=== PATIENT | female | born 1965 | race Caucasian/White ===

== ENCOUNTER 2016-09-09 11:59 | Emergency (ER) | payer SELFPAY ==
[2016-09-22] MEDS ORDERED: ASPIRIN EC81 MG PO (07:28)
[2016-09-22] MEDS ORDERED: FLEXERIL 10 MG10 MG PO (07:28)
[2016-09-22] MEDS ORDERED: ADVAIR 250-501 EACH INH (07:30)
[2016-09-22] MEDS ORDERED: ISORDIL TAB 3030 MG PO (07:31)
[2016-09-22] MEDS ORDERED: ZOCOR20 MG PO (07:31)
[2016-09-22] MEDS ORDERED: LEXAPRO20 MG PO (07:32)
[2016-09-22] MEDS ORDERED: WELLBUTRIN SR100 MG PO (07:32)
[2016-09-22] MEDS ORDERED: CATAPRES 0.1MG0.1 MG PO (07:32)
[2016-09-22] MEDS ORDERED: NEURONTIN 400400 MG PO (07:33)
[2016-09-22] MEDS ORDERED: PHENERGAN 12.12.5 M1 PO (12:37)
[2016-09-22] MEDS ORDERED: PERCOCET 5-3251 EACH PO (12:37)
[2016-09-22] MEDS ORDERED: DOSS (12:38)
[2016-09-22] MEDS ORDERED: DOSS PO (12:39)
[2016-12-26] MEDS ORDERED: PERCOCET 7.5-31 EACH PO (14:51)
== END 2016-09-09 17:11 | disposition home or self-care (01) ==
LOC: ER1 11:59
DX: S42.031A Displaced fracture of lateral end of right clavicle, initial encounter for closed fracture (principal); S30.1XXA Contusion of abdominal wall, initial encounter; M50.322 Other cervical disc degeneration at C5-C6 level; F17.200 Nicotine dependence, unspecified, uncomplicated; Z88.2 Allergy status to sulfonamides; Z88.5 Allergy status to narcotic agent; V89.9XXA Person injured in unspecified vehicle accident, initial encounter; Y92.410 Unspecified street and highway as the place of occurrence of the external cause
CPT/HCPCS: 70450; 71010; 72125; 73010; 73030; 73502; 96372; 99284; J1885

== ENCOUNTER 2016-09-11 15:55 | Emergency (ER) | payer OTHER ==
[2016-09-22] MEDS ORDERED: ASPIRIN EC81 MG PO (07:28)
[2016-09-22] MEDS ORDERED: FLEXERIL 10 MG10 MG PO (07:28)
[2016-09-22] MEDS ORDERED: ADVAIR 250-501 EACH INH (07:30)
[2016-09-22] MEDS ORDERED: ZOCOR20 MG PO (07:31)
[2016-09-22] MEDS ORDERED: ISORDIL TAB 3030 MG PO (07:31)
[2016-09-22] MEDS ORDERED: LEXAPRO20 MG PO (07:32)
[2016-09-22] MEDS ORDERED: CATAPRES 0.1MG0.1 MG PO (07:32)
[2016-09-22] MEDS ORDERED: WELLBUTRIN SR100 MG PO (07:32)
[2016-09-22] MEDS ORDERED: NEURONTIN 400400 MG PO (07:33)
[2016-09-22] MEDS ORDERED: PERCOCET 5-3251 EACH PO (12:37)
[2016-09-22] MEDS ORDERED: PHENERGAN 12.12.5 M1 PO (12:37)
[2016-09-22] MEDS ORDERED: DOSS (12:38)
[2016-09-22] MEDS ORDERED: DOSS PO (12:39)
[2016-12-26] MEDS ORDERED: PERCOCET 7.5-31 EACH PO (14:51)
== END 2016-09-11 18:20 | disposition left against medical advice (07) ==
LOC: ER1 15:55
DX: Z53.21 Procedure and treatment not carried out due to patient leaving prior to being seen by health care provider (principal)

== ENCOUNTER → 2016-09-20 | Outpatient (CLI) | payer OTHER ==
[~2016-09-20] MED LIST: ADVAIR 250-501 EACH INH; ASPIRIN EC81 MG PO; CATAPRES 0.1MG0.1 MG PO; DOSS; DOSS PO; FLEXERIL 10 MG10 MG PO; ISORDIL TAB 3030 MG PO; LEXAPRO20 MG PO; NEURONTIN 400400 MG PO; PERCOCET 5-3251 EACH PO; PERCOCET 7.5-31 EACH PO; PHENERGAN 12.12.5 M1 PO; WELLBUTRIN SR100 MG PO; ZOCOR20 MG PO
[2016-09-20 12:28] LABS: BUN/CREATININE RATIO 18 (0-10)
== END ==
LOC: OPSV2 11:00
PROVIDERS: Orthopaedic Surgery
DX: Z01.812 Encounter for preprocedural laboratory examination (principal); Z01.810 Encounter for preprocedural cardiovascular examination; Z01.818 Encounter for other preprocedural examination; S42.001A Fracture of unspecified part of right clavicle, initial encounter for closed fracture; Z88.5 Allergy status to narcotic agent; Z88.2 Allergy status to sulfonamides
CPT/HCPCS: 36415; 71020; 80048; 93005

== ENCOUNTER → 2016-09-22 | Day surgery (SDC) | payer OTHER ==
[~2016-09-22] VITALS: Ht 170.2 cm; Wt 77.1 kg
== END | disposition home or self-care (01) ==
LOC: OR 06:52
PROVIDERS: Orthopaedic Surgery
PROC: 0PS904Z Reposition Right Clavicle with Internal Fixation Device, Open Approach (ICD-10-PCS; principal; 2016-09-22 07:45)
DX: S42.001A Fracture of unspecified part of right clavicle, initial encounter for closed fracture (principal); V49.9XXA Car occupant (driver) (passenger) injured in unspecified traffic accident, initial encounter; I10 Essential (primary) hypertension; I25.119 Atherosclerotic heart disease of native coronary artery with unspecified angina pectoris; I25.2 Old myocardial infarction; J44.9 Chronic obstructive pulmonary disease, unspecified; J40 Bronchitis, not specified as acute or chronic; K21.9 Gastro-esophageal reflux disease without esophagitis; N19 Unspecified kidney failure; G89.29 Other chronic pain; M54.9 Dorsalgia, unspecified; M19.90 Unspecified osteoarthritis, unspecified site; F41.9 Anxiety disorder, unspecified; F17.210 Nicotine dependence, cigarettes, uncomplicated; Z87.01 Personal history of pneumonia (recurrent); Z85.41 Personal history of malignant neoplasm of cervix uteri; Z82.49 Family history of ischemic heart disease and other diseases of the circulatory system; Z83.3 Family history of diabetes mellitus; Z82.5 Family history of asthma and other chronic lower respiratory diseases; Z81.8 Family history of other mental and behavioral disorders; Z88.2 Allergy status to sulfonamides; Z88.5 Allergy status to narcotic agent; Z88.6 Allergy status to analgesic agent; Z79.82 Long term (current) use of aspirin; Z79.899 Other long term (current) drug therapy; Z90.49 Acquired absence of other specified parts of digestive tract; Z98.51 Tubal ligation status; Z98.890 Other specified postprocedural states
CPT/HCPCS: 73000; 76000; C1713; J0171; J0690; J1100; J2405; J2710; J3010; J7030; J7120

== ENCOUNTER 2016-09-28 12:39 | Emergency (ER) | payer OTHER ==
[~2016-09-28 12:39] MED LIST changes: -PERCOCET 7.5-31 EACH PO
[2016-12-26] MEDS ORDERED: PERCOCET 7.5-31 EACH PO (14:51)
== END 2016-09-28 14:21 | disposition home or self-care (01) ==
LOC: ER1 12:39
DX: K59.00 Constipation, unspecified (principal); M54.9 Dorsalgia, unspecified; Z88.2 Allergy status to sulfonamides; Z88.5 Allergy status to narcotic agent; Z91.041 Radiographic dye allergy status
CPT/HCPCS: 81001; 84703; 99283

== ENCOUNTER → 2016-12-26 | Day surgery (SDC) | payer OTHER ==
[~2016-12-26] VITALS: Ht 170.2 cm; Wt 78.0 kg
[~2016-12-26] MED LIST changes: +PERCOCET 7.5-31 EACH PO
[2016-12-26 07:48] LABS: BUN/CREATININE RATIO 24 (0-10)
== END | disposition home or self-care (01) ==
LOC: OR 06:42
PROVIDERS: Orthopaedic Surgery
PROC: 0PU907Z Supplement Right Clavicle with Autologous Tissue Substitute, Open Approach (ICD-10-PCS; 2016-12-26)
PROC: 0P8 Upper Bones, Division (ICD-10-PCS; principal; 2016-12-26 10:15)
DX: S42.031K Displaced fracture of lateral end of right clavicle, subsequent encounter for fracture with nonunion (principal); I25.10 Atherosclerotic heart disease of native coronary artery without angina pectoris; I10 Essential (primary) hypertension; J44.9 Chronic obstructive pulmonary disease, unspecified; I25.2 Old myocardial infarction; K21.9 Gastro-esophageal reflux disease without esophagitis; N19 Unspecified kidney failure; G89.29 Other chronic pain; G43.909 Migraine, unspecified, not intractable, without status migrainosus; M19.90 Unspecified osteoarthritis, unspecified site; F17.210 Nicotine dependence, cigarettes, uncomplicated; M54.9 Dorsalgia, unspecified; Z85.41 Personal history of malignant neoplasm of cervix uteri; Z88.2 Allergy status to sulfonamides; Z88.5 Allergy status to narcotic agent; Z79.82 Long term (current) use of aspirin; Z79.51 Long term (current) use of inhaled steroids; Z79.899 Other long term (current) drug therapy; V89.2XXD Person injured in unspecified motor-vehicle accident, traffic, subsequent encounter
CPT/HCPCS: 36415; 71010; 73000; 76000; 80048; 84703; 93005; C1713; J0690; J1100; J2250; J2274; J2405; J7030; J7120